=== PATIENT | female | born 1945 | race Caucasian/White ===

== ENCOUNTER 2017-11-13 20:10 | Emergency (ER) | payer MEDICARE, BC ==
[~2017-11-13] VITALS: Ht 170.2 cm; Wt 70.0 kg
[2017-11-13 20:16] VITALS: BP 131/52
[2017-11-13 20:57] LABS: BASOPHILS % (AUTO) 0.4 % (0-1); EOSINOPHILS # (AUTO) 0.2 X10'3 (0-0.9); EOSINOPHILS % (AUTO) 1.9 % (0-6); HEMATOCRIT 37.2 % (35.0-45.0); HEMOGLOBIN 12.4 g/dl (12.0-16.0); LYMPHOCYTES # (AUTO) 2.6 X10'3 (1.1-4.8); LYMPHOCYTES % (AUTO) 20.9 % (21-51); MEAN CORPUSCULAR HEMOGLOBIN 29.9 PG (27.0-31.0); MEAN CORPUSCULAR HGB CONC 33.2 % (33.0-36.5); MEAN CORPUSCULAR VOLUME 90.1 FL (78-98); MEAN PLATELET VOLUME 8.3 FL (7.4-10.4); MONOCYTES # (AUTO) 0.9 X10'3 (0-0.9); NEUTROPHILS # (AUTO) 8.6 X10'3 (1.8-7.7); NEUTROPHILS % (AUTO) 69.8 % (42-75); PLATELET COUNT 288 X10'3 (140-440); RED BLOOD COUNT 4.13 X10'6 (4.20-5.60); RED CELL DISTRIBUTION WIDTH 14.2 % (11.5-14.5); WHITE BLOOD COUNT 12.3 X10'3 (4.5-11.0)
[2017-11-13 21:07] LABS: INR 1.5 INR; PARTIAL THROMBOPLASTIN TIME 45 SECONDS (22-32)
[2017-11-13 21:15] LABS: ALANINE AMINOTRANSFERASE 17 U/L (12-78); ALBUMIN/GLOBULIN RATIO 1.1 (1.1-1.5); ALKALINE PHOSPHATASE 92 IU/L (46-116); ANION GAP 11 (8-16); ASPARTATE AMINO TRANSFERASE 11 U/L (10-37); BILIRUBIN,TOTAL 0.3 MG/DL (0.1-1.0); BLOOD UREA NITROGEN 42 MG/DL (7-18); BUN/CREATININE RATIO 17.2 (6.6-38.0); CALCIUM 9.2 MG/DL (8.5-10.1); CHLORIDE 100 MMOL/L (99-107); CREATININE 2.44 MG/DL (0.40-0.90); GLUCOSE 106 MG/DL (70-104); POTASSIUM 3.4 MMOL/L (3.5-5.1); SODIUM 139 MMOL/L (135-145); TOTAL CARBON DIOXIDE 28.3 MMOL/L (24-32); TOTAL PROTEIN 7.8 G/DL (6.4-8.2); eGFR 20 ML/MIN
== END 2017-11-14 03:11 | disposition left against medical advice (07) ==
LOC: ER 20:11
DX: R06.02 Shortness of breath (principal); Z53.21 Procedure and treatment not carried out due to patient leaving prior to being seen by health care provider
CPT/HCPCS: 36415; 71045; 80053; 84484; 85025; 85610; 85730; 99281

== ENCOUNTER 2018-01-29 07:05 | Outpatient (CLI) | payer MEDICARE, BC ==
[~2018-01-29] VITALS: Ht 170.2 cm; Wt 86.2 kg
[2018-01-29 07:40] LABS: TOTAL HEMOGLOBIN 11.8 G/dl (12.0-16.0)
[2018-01-29] MEDS ORDERED: albuterol 2.5 MG/3 ML nebule NEB PRN (08:05)
== END 2018-01-29 23:59 | disposition home or self-care (01) ==
LOC: RT 07:05
PROVIDERS: ATTEND Specialist
DX: R06.02 Shortness of breath (principal); F17.210 Nicotine dependence, cigarettes, uncomplicated; Z79.899 Other long term (current) drug therapy
CPT/HCPCS: 85018; 94060; 94727; 94729; 94760